=== PATIENT | female | born 1960 | race Caucasian/White ===

== ENCOUNTER 2018-11-25 12:01 | Day surgery (SDC) | payer BC ==
[~2018-11-25] VITALS: Ht 162.6 cm; Wt 67.1 kg
[~2018-11-25 12:01] MED LIST: ASPI81TA50 PO; ATEN100T PO; GEMF600T8 PO; LOSA1TAB25 PO; PANT40TA4 PO; SITA1TBM7 PO
[2018-11-25 13:30] VITALS: Ht 162.6 cm; Wt 67.1 kg
[2018-11-25] MEDS ORDERED: ATORVASTATIN (13:38)
[2018-11-25] MEDS ORDERED: VIT D3 (13:38)
[2018-11-25] MEDS ORDERED: PROPOFOL 40 ML ONE (13:43)
[2018-11-25] MEDS ORDERED: LIDOCAINE 2% (SDV) 5 ML INJ ONE (13:43)
--- NOTE | 2018-11-25 13:43 | PREAC ---
Date/Time of Note Date/Time of Note DATE: 11/25/18 TIME: 13:41 Anesthesia Eval and Record Evaluation Time Pre-Procedure Interview DATE: 11/25/18 TIME: 13:41 Age 58 Sex female NPO: 8 hrs Preoperative diagnosis dyspepsia, lower abdominal pain Planned procedure EGD, colonoscopy Past Medical History Past Medical History: Includes Cardio: HTN, CAD Endo: Diabetes GI: Other (pancreatic cyst) Surgery & Anesthesia Issues No known issue Meds Anticoagulation: No Beta Rivas within 24 hr: Yes Reason Beta Rivas not given: Bradycarida, Hypotension Reported Medications [Vit D3] No Conflict Check 11/25/18 [ Atorvastatin] No Conflict Check 11/25/18 Pantoprazole* (Pantoprazole*) 40 Mg Tablet.dr, 40 MG PO DAILY, TAB 09/04/15 Losartan-Hydrochlorothiazide (Losartan-HCTZ) 100-25 Mg Tab, 1 TAB PO DAILY, TAB 09/04/15 Aspirin (Aspir-Low) 81 Mg Tablet.dr, 81 MG PO 09/04/15 Sitagliptin Phos-Metformin Hcl (Janumet XR) 100-1,000 Mg Tbmp.24hr, 1 TAB PO DAILY, TAB 09/04/15 Atenolol* (Atenolol*) 100 Mg Tablet, 100 MG PO DAILY, TAB 09/04/15 Discontinued Reported Medications Gemfibrozil* (Gemfibrozil*) 600 Mg Tablet, 600 MG PO BID, TAB 09/04/15 Meds reviewed: Yes Allergies Coded Allergies: amlodipine (Verified Allergy, Unknown, 11/25/18) Allergies Reviewed: Yes Labs/Studies Labs Reviewed: Reviewed by anesthesiologist test: N/A Pre-procedure Exam Airway: Adequate mouth opening, Adequate thyromental dist Mallampati: Mallampati II Teeth: Normal Lung: Normal Heart: Normal ASA Physical Status ASA physical status: 2 Emergency: None Planned Anesthetic General/MAC: Mask Planned Pain Management Parenteral pain med Pre-operative Attestations Prior to commencing anesthesia and surgery, the patient was re-evaluated, there was verification of: *The patient's identity *The results of appropriate recent lab work and preoperative vital signs *The above evaluation not changing prior to induction *Anesthetic plan, risk benefits, alternative and complications discussed with patient/family; questions answered; patient/family understands, accepts and wishes to proceed. ERNESTO HOFFMAN MD Nov 25, 2018 13:43
[2018-11-25 13:56] VITALS: BP 106/59; PULSE 59; RESP 12
[2018-11-25] MEDS ORDERED: hydrALAzine 20 MG INJ IV PRN (14:00)
[2018-11-25] MEDS ORDERED: ONDANSETRON 4 MG INJ IV PRN (14:00)
[2018-11-25] MEDS ORDERED: HYDROmorphONE 1 MG/5 ML IV SYRINGE IV PRN (14:00)
[2018-11-25] MEDS ORDERED: LABETALOL HCL 20MG INJ IV PRN (14:00)
--- NOTE | 2018-11-25 15:30 | PAC ---
Date/Time of Note Date/Time of Note DATE: 11/25/18 TIME: 15:29 Post-Anesthesia Notes Post-Anesthesia Note Last documented vital signs Vital Signs Date Temp Pulse Resp B/P (MAP) Pulse Ox O2 O2 Flow FiO2 Time Delivery Rate 11/25/18 98.4 59 12 106/59 97 Room Air 13:56 (75) Activity: WNL Respiratory function: WNL Cardiovascular function: WNL Mental status: Baseline Pain reasonably controlled: Yes Hydration appropriate: Yes Nausea/Vomiting absent: Yes Comments BP: 98/54 HR: 74 RR: 15 T: 98 SaO2: 100% ERNESTO HOFFMAN MD Nov 25, 2018 15:30
[2018-11-25] MEDS ORDERED: PROPOFOL 20 ML ONE (15:38)
[2018-11-25] MEDS ORDERED: EPHEDrine 25 MG/5 ML SYG ONE (15:38)
[2018-11-25 16:01] VITALS: BP 110/63; RESP 20
--- NOTE | 2018-11-25 17:01 | HPN ---
Date/Time of Note Date/Time of Note DATE: 11/25/18 TIME: 17:01 Interval H&P Admission Note Pt. seen H&P reviewed: No system changes BRADY GILLIS Nov 25, 2018 17:01
== END 2018-11-25 17:18 | disposition home or self-care (01) ==
LOC: GIL 12:01
PROVIDERS: ATTEND Internal Medicine Gastroenterology
DX: K29.30 Chronic superficial gastritis without bleeding (principal); D12.5 Benign neoplasm of sigmoid colon; I10 Essential (primary) hypertension; E11.9 Type 2 diabetes mellitus without complications; I25.10 Atherosclerotic heart disease of native coronary artery without angina pectoris
CPT/HCPCS: 43239; 45380; 82962; 88305; 88312; 88313; Z7610